=== PATIENT | male | born 1990 | race Caucasian/White ===

== ENCOUNTER 2018-10-14 10:17 | Emergency (ER) | payer SELFPAY ==
[~2018-10-14] VITALS: Ht 172.7 cm; Wt 65.9 kg
[2018-10-14 12:26] VITALS: BP 137/75
== END 2018-10-14 12:51 | disposition home or self-care (01) ==
LOC: EMS 10:17
DX: R06.02 Shortness of breath (principal); F41.9 Anxiety disorder, unspecified
CPT/HCPCS: 93005

== ENCOUNTER 2020-03-09 03:21 | Emergency (ER) | payer SELFPAY ==
[~2020-03-09] VITALS: Ht 167.6 cm; Wt 68.2 kg
[2020-03-09 03:24] VITALS: BP 148/84
[2020-03-09] MEDS ORDERED: ACETAMINOPHEN 500 MG TABLET PO ONE (04:45)
== END 2020-03-09 05:00 | disposition left against medical advice (07) ==
LOC: EMS 03:22
DX: R06.02 Shortness of breath (principal); F41.9 Anxiety disorder, unspecified
CPT/HCPCS: Z7502